=== PATIENT | male | born 1990 | race Caucasian/White ===

== ENCOUNTER 2025-01-12 03:30 | Emergency (ER) | payer OTHER, SELFPAY ==
--- OUTSIDE RECORDS SUMMARY | 2023-11-27 04:00 | XMS_ITS ---
Author Organization [facility] Address [address] [place] [address] Care Team Providers Care Control Area Operator Name Role Phone Zulema CANO, Lazaro Primary Care Provider Gilberto Back Unavailable [phone] Migration, Provider Unavailable Unavailable REASON FOR VISIT EMR-Scott Encounters Encounter Location Date Provider Diagnosis Migrated_Facility 0 0 11/27/2023 Provider Migration Plan Of Treatment Medication Medication Name Sig Start Date Stop Date Notes diazePAM 10 MG Tablet Oral 08/10/2023 08/11/2023 HYDROcodone-Acetaminophen 5-325 MG Tablet Oral 08/0908/15/2023 Next Appt Details Provider Name:Andrés Leach , 02/12/2025 12:00:00 PM, [address], [place], [address], Progress Notes * TASH REBOLLEDO LDOB: 3 (34 yo M)Acc No.[id number]:11/27/2023 Patient: TASH ODOM :1990 A ge:33 Y S ex:Male Address:[address] [place] [address], [phone] * Refills Stop diazePAM Tablet, 10 MG, Oral Stop HYDROcodone-Acetaminophen Tablet, 5-325 MG, Oral Subjective: * Chief Complaints: * E MR-Scott * * Date:
--- OUTSIDE RECORDS SUMMARY | 2023-11-28 04:00 | XMS_ITS ---
Author Organization [facility] Address [address] [place] [address] Care Team Providers Care Fiber Optics Supervisor Name Role Phone Zulema CANO, Lazaro Primary Care Provider UnavailGilberto Walsh Unavailable [phone] Migration, Provider Unavailable Unavailable REASON FOR VISIT EMR-Scott Encounters Encounter Location Date Provider Diagnosis Migrated_Facility 0 0 11/28/2023 Provider Migration Plan Of Treatment Next Appt Details Provider Name:Andrés Leach , 02/12/2025 12:00:00 PM, [address], [place], [address], Progress Notes * TASH REBOLLEDO LDOB: 3 (34 yo M)Acc No.[id number]:11/28/2023 Patient: TASH ODOM :1990 A ge:33 Y S ex:Male Address:[address] [place] [address], [id number] Subjective: * Chief Complaints: * E MR-Scott * Family History: M aternal Grand Mother: MGRPRN - Maternal Grandmother: :: Diabetes,,known absent . * * Date:
--- NOTE | 2025-01-12 03:38 | ECG_ITS ---
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 Measurements Intervals [place] Rate: 67 P: 43 IN: 153 QRS: 36 QRSD: 83 T: 48 QT: 372 QTc: 395 Interpretive Statements SINUS RHYTHM WITH SINUS ARRHYTHMIA No previous ECG available for comparison Electronically Signed On 01-12-2025 13:46:08 CDT by Lisset Emerson M.D. [email or web address]
[2025-01-12 03:44] VITALS: BP 130/79; PULSE 60; RESP 20; TEMP 36.8; O2SAT 100; BMI 40.3
--- OUTSIDE RECORDS SUMMARY | 2025-01-12 03:49 | XMS_ITS | Patient Health Record ---
Author Organization [facility] Address [address] [place] [address] Care Team Providers Care Bronc Buster Name Role Phone Lazaro Poole MD Primary Care Provider UnavailGilberto Walsh Unavailable [phone] Andrés Leach Unavailable [phone] Allergies No Known Allergies Results Component Value Reference Range Flag Notes Amylase (B) 42081 (Not yet r eviewed by provider) Interpretation: Performing Lab: Notes/Report: Diagnosis Description: Epigastric pain Amylase Level 40 25-115 UNIT/L CBC w\ Auto Diff 29686 (Not yet reviewed by provider) Interpretation: Performing Lab: Notes/Report: Diagnosis Description: Epigastric pain WBC 8.6 4.5-11.0 X10'3 RBC 5.18 4.50-5.90 X10'6 Hgb 15.2 13.5-17.5 G/DL Hct 44.8 41.0-53.0 % MCV 86.5 80.0-100.0 FL MCH 29.3 27.0-31.0 PG MCHC 33.9 31.0-37.0 G/DL Platelet 267 150-400 X10'3 RDW-SD 40.1 35.0-49.0 FL RDW-CV 12.6 12.2-15.6 % MPV 9.4 9.2-12.0 FL Neutro Auto% 63.9 40.0-70.0 % Lymph Auto% 26.4 22.0-44.0 % [place] Auto% 8.3 3.0-7.0 % HI Eos Auto% .9 2.0-4.0 % LOW Baso Auto% 0.3 0.0-1.0 % Imm Gran% .2 .0-.4 % Neutro Abs 5.49 .80-7.70 Absolute Neutrophil Count 5490 NA Lymph Abs 2.27 .10-4.10 [place] Abs .71 .20-1.00 Eos Abs .08 .00-.40 Baso Abs .03 .00-.20 Imm Gran Abs .02 .00-.10 NRBC# .00 .00-.20 NRBC% .00 .00-.20 /100 int act WBC's Sedimentation Rate 95942 (No t yet reviewed by provider) Interpretation: Performing Lab: Notes/Report: Diagnosis Description: Epigastric pain Sed Rate 12 0-15 MM/HR Comprehensive Metabolic Pane l (CMP) 12181 (Not yet reviewed by provider) Interpretation: Performing Lab: Notes/Report: Diagnosis Description: Epigastric pain Glucose Serum 93 71-110 MG/DL Testing p erformed at [facility], [address] [place] [address] [place] [address]. CLIA ID#: [id number] BUN 11 7-21 MG/DL Creat 1.00 .57-1.17 MG/DL C-inzlij-r-benzoquinone imine (NAPQI) is a metabolite of acetaminophen, NAPQI concentrations of apparoximately 10 mg/L correlation to toxic levels of acetaminophen demonstrates a greater than or equil to 10% change in results. NAPQI concentrations greater than this may lead to falsely depressed results for patient samples. Use of this assay is not recommended for patients undergoing treatment with phenindione, due to the potential for falsely depressed results. GFR 102.4 NA Calculation pe rformed from GFR calculator provided by the [employer]. Glomerular Filtration rate(GRF) is the best overall index of kidney function. Normal GFR varies according to age,sex, body size, and declines with age. The National Kid[employer] Foundation recommends using the CKD-EPI Creatinine Equation(202) to estimate GFR. BUN/Creat Ratio 11.0 12.0-20.0 % LOW Total Protein 6.9 5.8-8.0 G/DL Albumin 4.2 3.2-4.8 G/DL Globulin 2.7 2.3-3.5 G/DL Alb/Glob 1.6 0.8-2.2 Calcium 9.3 8.7-10.4 MG/DL Sodium 142 136-145 MMOL/L Potassium 4.4 3.5-5.1 MMOL/L Chloride 106 98-107 MMOL/L CO2 26.5 20.0-31.0 MMOL/L Anion Gap 14 5-15 Alk Phos 68 46-116 Bili Total .6 .3-1.2 MG/DL Use of this assay is not recommended for patients undergoing treatment with eltrombopag due to the potential for falsely elevated results. AST/SGOT 28 15-37 UNIT/L ALT/SGPT 60 12-78 UNIT/L Osmo Serum,Calculated 293 280-300 MOSM/KG Reason For Referral No Information Medications Medication SIG (Take, Route, Frequency, Duration) Notes Start Date End Date Status Pantoprazole Sodium 40 MG Tablet Delayed Release 1 tablet 1/2 to 1 hour before morning meal Orally Once a day Active Social History Social History Tobacco Use: Social Info Question Answer Notes Screening Not Performed: Do you smoke? No Additional Details Category Social Info Options Details Drugs/Alcohol: Do you smoke marijuana? De nies Do you drink alcohol? No Problems Problem Type SNOMED Code ICD Code Onset Dates Problem Status W/U Status Risk Notes Problem Chronic gastroesophageal reflux disease (K21.9) Active confirmed Vital Signs Heart Rate 70 /min 01/01/2025 Temperature 97.4 degrees Fahrenheit 01/01/2025 Respiratory Rate 16 /min 01/01/2025 Height-cm 167.64 cm 01/01/2025 Oximetry 98 % 01/01/2025 Blood pressure diastolic 82 mm Hg 01/01/2025 Height 66.00 in 01/01/2025 Blood pressure systolic 126 mm Hg 01/01/2025 Encounters Encounter Location Date Provider Diagnosis [facility] [address] [place] [address] 01/01/2025 Gilberto Stoll Chronic gastroesophageal reflux disease K21.9 ; Epigastric pain R10.13 and Blood pressure check Z01.30 [facility] [address] [place] [address] 12/14/2024 Gilberto Stoll [facility] [address] [place] [address] 01/01/2025 Andrés Leach Assessments Encounter Date Diagnosis (ICD Code) Assessment Notes Treatment Notes Treatment Clinical Notes Section Notes 01/01/2025 Chronic gastroesophageal reflux disease (ICD-10 - K21.9) 01/01/2025 Epigastric pain (ICD-10 - R10.13) Complete abdominal ultrasound and lab work ahead of EGD. Impression: Chronic GERD, rule out concurrent hiatal hernia with chronic cholecystitis. Follow GERD precautions: Take PPI regularly rather than for intermittent basis, and cut back on coffee, avoid NSAIDs and alcohol, avoid large meals before bed, spicy foods, head of bed up on blocks. All questions answered. 01/01/2025 Blood pressure check (ICD-10 - Z01.30) Plan Of Treatment Pending Test Test Name Order Date Amylase (B) 31575 01/01/2025 CBC w\ Auto Diff 02435 01/01/2025 Comprehensive Metabolic Panel (CMP) 8005 3 01/01/2025 Sedimentation Rate 84199 01/01/2025 US Abdomen Complete-11996 01/01/2025 EGD, Upper GI Diagnostic-55387 Schedule Confirmation 01/29/2025 Next Appt Details Provider Name:Andrés Leach , 02/12/2025 12:00:00 PM, [address], [place], [address], Insurance Providers Payer Name Payer Address Payer Phone Subscriber Number Group Number Insured Name Patient Relationship to Insured Coverage Start Date Coverage End Date [employer] [address] [place] [address] [id number] TASH REBOLLEDO Self - patient is the insured Medical (General) History Medical History History ICD Code migraine headaches bronchitis Surgical History Surgery Date(Month/Year) vasectomy 2023
[2025-01-12 03:58] LABS: Hematocrit 42.3 % (37-53); Hemoglobin 14.70 g/dL (11.27-16.99); Mean Corpuscular HGB Conc 34.8 g/dL (30-55); Mean Corpuscular Hemoglobin 29.5 pg (27-33); Mean Corpuscular Volume 84.9 fl (82-101); Nucleated Red Blood Cells % 0 %; Platelet Count 241 10^3/cmm (157-399); Red Blood Count 4.98 10^6/uL (3.85-5.65); White Blood Count 10.14 10^3/uL (3.29-11.43)
[2025-01-12 04:20] LABS: Troponin(5th) Baseline < 6 ng/L (0-15)
[2025-01-12 04:22] LABS: Alanine Aminotransferase 40 U/L (0-41); Albumin Level 4.2 g/dL (3.5-5.2); Alkaline Phosphatase 74 U/L (40-130); Anion Gap 14.2 (5-19); Aspartate Amino Transferase 21 U/L (0-40); Blood Urea Nitrogen 13 mg/dL (6-20); Calcium 8.8 mg/dL (8.5-10.5); Carbon Dioxide 26 mmol/L (22-29); Chloride 104 mmol/L (98-107); Creatinine Clr Calc Pharmacy 139.3987; Globulin 2.4 g/dL (1.3-4.6); Glucose 107 mg/dL (65-115); Osmolality Calculated 291 mOsm/kg (285-295); Potassium 4.2 mmol/L (3.5-5.1); Sodium 140 mmol/L (136-145); Total Protein 6.6 g/dL (6.6-8.7)
[2025-01-12 05:18] VITALS: BP 119/72; PULSE 65; RESP 14; O2SAT 97
--- NOTE | 2025-01-12 05:38 | ECG_ITS ---
[facility] Test Date: 2025-01-12 Pat Name: Amado Funk Department: Room: Gender: Male Back End Developer: : 1990 Requested By: Tima Joseph Order Number: [id number] Armando MD: Lisset Emerson M.D. Measurements Intervals [place] Rate: 55 P: 45 NM: 154 QRS: 20 QRSD: 94 T: 30 QT: 396 QTc: 381 Interpretive Statements SINUS BRADYCARDIA WITH SINUS ARRHYTHMIA Compared to ECG 01/12/2025 03:44:37 Sinus rhythm no longer present Electronically Signed On 01-12-2025 13:55:48 CDT by Lisset Emerson M.D. [email or web address]
--- NOTE | 2025-01-12 05:38 | ED_ITS ---
HPI - Chest Pain 2 General: Chief Complaint: Chest Pain Stated Complaint: Chest Pain Time Seen by Provider: 01/12/25 04:59 Source: patient Mode of arrival: ambulatory History of Present Illness: Patient has POV for substernal/epigastric pain started last night while resting woke him up. [place] nauseous but no vomiting. History of GERD and GI problems. Supposed be on Protonix daily did forget to take it yesterday. Reports he has follow-up with GI and a planned scope for February. Pain still somewhat occurring when he got here but not as bad as at home. He did have about a few minute episode of being diaphoretic. But that resolved but when he woke up his and told her about it she encouraged him to come here to get checked out. No cardiac history. No history of sudden cardiac at young age and family Related Data Previous Rx's ?Medication ?Instructions ?Recorded amoxicillin 875 mg-potassium 1 tab PO BID 7 days #14 t abs 11/30/21 clavulanate 125 mg tablet sucralfate 1 gram tablet (Carafate) 1 g PO TID PRN epi gastric pain, 01/12/25 GERD 30 days #30 tabs Allergies Allergy/AdvReac Type Severity Reaction Status Date / Time No Known Allergies Allergy Verified 11/30/21 10:55 Review of Systems 2 General: Reports: 10 or more systems reviewed and unremarkable except in HPI and below Physical Exam 2 Const: COMMON NORMALS: no acute distress, average body habitus, patient oriented x3, healthy appearing, alert and well nourished GENERAL APPEARANCE: well kempt and well developed HENMT: COMMON NORMALS: normocephalic, atraumatic, external ears normal and moist oral mucous membranes HEAD & SCALP: normocephalic and atraumatic E XTERNAL EAR: Yes external ears normal Eye: COMMON NORMALS: Equal, round and reactive pupils present, EOMs intact bilaterally and conjunctivae normal CONJUNCTIVA: Yes conjunctivae normal P UPIL: Yes Equal, round and reactive pupils present Neck/C-Spine: COMMON NORMALS: full ROM, no lymphadenopathy and supple Chest: CHEST: Yes Symmetrical chest wall rise and No Surgical scars present (Chest) Resp: COMMON NORMALS: normal respiratory effort, No retractions, No use of accessory muscles and clear to auscultation bilaterally AUSCULTATION: clear to auscultation bilaterally Cardio: COMMON NORMALS: regular rate, regular rhythm, S1 normal heart sound present, S2 normal heart sound present, No gallops present (Cardio), No clicks present (Cardio), No murmurs present (Cardio) and No rub (Cardio) RATE: r egular rate RHYTHM: regular rhythm HEART SOUNDS: S1 normal heart sound present, S2 normal heart sound present and no murmurs PERIPHERAL PULSES: o ther (Radial pulses 2+ and symmetric) GI: COMMON NORMALS: Soft to palpation, non-tender and no masses INSPECTION: No abdominal distension PALPATION: Yes Soft to palpation, No Guarding due to palpation present (GI) and No Rebound tenderness present : COMMON NORMALS: Yes no CVA tenderness BLADDER/KIDNEY EXAM: Yes no CVA tenderness Back/Pelvis: COMMON NORMALS: no CVA tenderness Extremity: COMMON NORMALS: normal to inspection, full ROM, capillary refill normal and no clubbing, cyanosis or edema Neuro: COMMON NORMALS: patient oriented x3 SENSORIUM/ORIENTATION: Yes alert Psych: APPEARANCE: Yes well kempt Skin: COMMON NORMALS: no rashes or lesions noted, no wounds, turgor normal and no jaundice GENERAL SKIN EXAM: no rashes or lesions noted and turgor normal Course 2 Vital Signs: Vital signs: Vital Signs Temperature 98.2 F 01/12/25 03:44 Pulse Rate 65 01/12/25 05:18 Respiratory Rate 14 01/12/25 05:18 Blood Pressure 119/72 01/12/25 05:18 Pulse Oximetry 97 01/12/25 05:18 MDM - Chest Pain Medical Decision Making Results discussed with patient. Normal workup including undetectable troponin. EKG performed at 3:44 AM and reviewed at 3:40 AM shows sinus rhythm, rate of 67, CO interval 133, normal axis, no ST elevations or depressions. QTc of 388. Discussed his bad reflux and he has not had a scope yet. Will prescribe him Carafate to use as needed and continue his Protonix daily. Patient expressed understanding. Patient courage to return to the ER if needed. Medical Records I reviewed the patient's medical records. Lab Data I reviewed the patient's lab results. 01/12/25 03:53 01/12/25 03:53 Laboratory Results WBC 10.14 10^3/uL (3.29-11.43) 01/12/25 03:53 RBC 4.98 10^6/uL (3.85-5.65) 01/12/25 03:53 Hgb 14.70 g/dL (11.27-16.99) 01/12/25 03:53 Hct 42.3 % (37-53) 01/12/25 03:53 MCV 84.9 fl (82-101) 01/12/25 03:53 MCH 29.5 pg (27-33) 01/12/25 03:53 MCHC 34.8 g/dL (30-55) 01/12/25 03:53 RDW 12.6 % (12.1-15.1) 01/12/25 03:53 Plt Count 241 10^3/cmm (157-399) 01/12/25 03:53 MPV 9.3 fL (7.4-10.4) 01/12/25 03:53 Neut % (Auto) 61.3 % 01/12/25 03:53 Lymph % (Auto) 29.1 % 01/12/25 03:53 [place] % (Auto) 8.0 % 01/12/25 03:53 Eos % (Auto) 1.0 % 01/12/25 03:53 Baso % (Auto) 0.3 % 01/12/25 03:53 Neut # (Auto) 6.22 10^3/uL (1.8-7.7) 01/12/25 03:53 Lymph # (Auto) 3.0 10^3/uL (0.8-4.8) 01/12/25 03:53 [place] # (Auto) 0.8 10^3/uL (0.2-0.9) 01/12/25 03:53 Eos # (Auto) 0.1 10^3/uL (0.0-0.8) 01/12/25 03:53 Baso # (Auto) 0.0 10^3/uL (0.0-0.1) 01/12/25 03:53 Nucleated RBC % (auto) 0 % 01/12/25 03:53 Nucleated RBCs # 0.0 /100WBC 01/12/25 03:53 Sodium 140 mmol/L (136-145) 01/12/25 03:53 Potassium 4.2 mmol/L (3.5-5.1) 01/12/25 03:53 Chloride 104 mmol/L (98-107) 01/12/25 03:53 Carbon Dioxide 26 mmol/L (22-29) 01/12/25 03:53 Anion Gap 14.2 (5-19) 01/12/25 03:53 BUN 13 mg/dL (6-20) 01/12/25 03:53 Creatinine 0.9 mg/dL (0.7-1.2) 01/12/25 03:53 GFR Calculation 97.8 mL/min (90-130) 01/12/25 03:53 Glucose 107 mg/dL (65-115) 01/12/25 03:53 Calculated Osmolality 291 mOsm/kg (285-295) 01/12/25 03:53 Calcium 8.8 mg/dL (8.5-10.5) 01/12/25 03:53 Total Bilirubin 0.2 mg/dL (0.15-1.2) 01/12/25 03:53 AST 21 U/L (0-40) 01/12/25 03:53 ALT 40 U/L (0-41) 01/12/25 03:53 Alkaline Phosphatase 74 U/L (40-130) 01/12/25 03:53 Troponin T Baseline < 6 ng/L (0-15) 01/12/25 03:53 Total Protein 6.6 g/dL (6.6-8.7) 01/12/25 03:53 Albumin 4.2 g/dL (3.5-5.2) 01/12/25 03:53 Globulin 2.4 g/dL (1.3-4.6) 01/12/25 03:53 No radiology studies performed this visit Discharge Plan Discharge Patient Disposition: Home Clinical Impression: Esophageal spasm, Chest pain due to GERD Condition: Stable Prescriptions: New sucralfate [Carafate] 1 gram tablet 1 g PO TID PRN (Reason: epigastric pain, GERD) 30 Days Qty: 30 0RF No Action amoxicillin-pot clavulanate 875-125 mg tablet 1 tab PO BID 7 Days Qty: 14 0RF Discharge Orders: Discharge ED (Routine); Ordered 01/12/25 Ordered By: Tima Joseph Patient Instructions: GERD (Gastroesophageal Reflux Disease) (ED), Esophageal Spasm (ED), Patient Portal & Astrid Instructions Activity Restrictions/Additional Instructions: Continue to follow-up with your GI doctor as planned. As we discussed your heart enzymes were negative. I have reviewed your cardiac monitoring that we performed here in the ER as well and is negative. As well as your EKG looks good. I have prescribed you Carafate to as we discussed take when needed. And continue your Protonix daily. Print Language: Czech Coding Level of Care Code ED Product Line Manager for Luis Hanna
[2025-01-12 06:00] VITALS: BP 116/70; PULSE 60; RESP 16; O2SAT 98
[2025-01-12 06:11] VITALS: BP 116/70; PULSE 60; O2SAT 98
== END 2025-01-12 06:16 | disposition home or self-care (01) ==
PROVIDERS: Emergency Provider Emergency Medicine
DX: K22.4 Dyskinesia of esophagus (principal); R07.9 Chest pain, unspecified; K21.9 Gastro-esophageal reflux disease without esophagitis
CPT/HCPCS: 36415; 80053; 84484; 85025; 93005; 99284